=== PATIENT | male | born 1970 | race Caucasian/White ===

== ENCOUNTER 2023-03-26 16:17 | Emergency (ER) | payer BC ==
[~2023-03-26] VITALS: Ht 175.3 cm; Wt 68.0 kg
[2023-03-26 16:21] VITALS: BP 149/90; PULSE 75; RESP 18; TEMP 98.7; O2SAT 97
[2023-03-26 17:06] LABS: BASOPHILS % 0.5 % (0.0-2.0); EOSINOPHILS % 0.6 % (0.0-5.0); HEMATOCRIT. 44.9 % (42.0-52.0); HEMOGLOBIN. 15.6 g/dL (14.0-18.0); MEAN CORPUSCULAR HEMOGLOBIN 31.1 pg (28.0-32.0); MEAN CORPUSCULAR VOLUME 89.7 fL (80.0-94.0); MONOCYTES % 8.3 % (2.0-8.0); NEUTROPHILS % 66.6 % (40.0-76.0); PLATELET 224 x1000/uL (130-400); RED BLOOD CELL COUNT 5.01 mill/uL (4.7-6.1); RED CELL DISTRIBUTION WIDTH 14.1 % (11.6-14.6)
[2023-03-26 17:17] LABS: CHLORIDE 108 mEq/L (98-107)
== END 2023-03-26 22:10 | disposition left against medical advice (07) ==
LOC: ER 16:17
DX: Z53.21 Procedure and treatment not carried out due to patient leaving prior to being seen by health care provider (principal)
CPT/HCPCS: 36415; 80053; 85025; 93005; 99281